=== PATIENT | female | born 1980 | race Caucasian/White ===

== ENCOUNTER 2021-01-02 13:15 | Emergency (ER) | payer MEDICARE, OTHER ==
[~2021-01-02] VITALS: Ht 162.6 cm; Wt 100.2 kg
[2021-01-02] MEDS ORDERED: Z.0.FLONASE16 GM (13:36)
[2021-01-02] MEDS ORDERED: ABILIFY30 MG (13:36)
[2021-01-02] MEDS ORDERED: DEPAKOTE ER500 MG PO (13:36)
[2021-01-02] MEDS ORDERED: NEXIUM40 MG PO (13:36)
[2021-01-02] MEDS ORDERED: SKELAXIN800 MG PO (13:58)
[2021-01-02] MEDS ORDERED: NAPROSYN500 MG PO (14:01)
[2021-01-02 14:10] VITALS: BP 158/74
== END 2021-01-02 14:09 | disposition home or self-care (01) ==
LOC: FSED 13:45
DX: M54.2 Cervicalgia (principal); M62.830 Muscle spasm of back; W22.01XA Walked into wall, initial encounter; Y93.02 Activity, running; Y92.59 Other trade areas as the place of occurrence of the external cause; F31.9 Bipolar disorder, unspecified; K21.9 Gastro-esophageal reflux disease without esophagitis
CPT/HCPCS: 81003; 81025; 99282

== ENCOUNTER 2021-09-12 15:28 | Emergency (ER) | payer MEDICARE ==
[~2021-09-12] VITALS: Ht 162.6 cm; Wt 90.7 kg
[~2021-09-12 15:28] MED LIST: ABILIFY30 MG; DEPAKOTE ER500 MG PO; NAPROSYN500 MG PO; NEXIUM40 MG PO; SKELAXIN800 MG PO; Z.0.FLONASE16 GM
[2021-09-12] MEDS ORDERED: SODIUM CHLORIDE 0.9% 1000ML 1,000 ML IV SCH (15:45)
[2021-09-12 16:03] LABS: BASOPHILS % 0.1 % (0.0-1.0); EOSINOPHILS % 0.4 % (0.0-6.0); HEMATOCRIT 45.4 % (34.2-44.1); HEMOGLOBIN 14.4 g/dL (12.0-16.0); LYMPHOCYTES # (AUTO) 1.6 (1.0-3.2); LYMPHOCYTES % 23.3 % (18.0-39.1); MEAN CORPUSCULAR HEMOGLOBIN 26.1 pg (28-32); MEAN CORPUSCULAR HGB CONC 31.7 g/dL (31-35); MEAN CORPUSCULAR VOLUME 82.2 fL (81-99); MONOCYTES # (AUTO) 0.5 (0.2-0.8); MONOCYTES % 7.7 % (4.4-11.3); NEUTROPHILS # (AUTO) 4.8 (2.1-6.9); NEUTROPHILS % 68.1 % (38.7-80.0); PLATELET COUNT 299 x10e3/uL (140-360); RED BLOOD COUNT 5.52 x10e6/uL (3.6-5.1)
[2021-09-12 16:11] LABS: CLARITY,URINE CLEAR (CLEAR); COLOR,URINE YELLOW (YELLOW); KETONES,URINE NEGATIVE (NEGATIVE); LEUKOCYTE ESTERASE ,URINE NEGATIVE (NEGATIVE); NITRITE,URINE NEGATIVE (NEGATIVE); PROTEIN,URINE DIPSTICK NEGATIVE (NEGATIVE); URINE UROBILINOGEN 0.2 mg/dL (0.2 - 1)
[2021-09-12] MEDS ORDERED: CASIRIVIMAB/IMDEVIMAB 10 ML in SODIUM CHLORIDE 0.9% 100 ML IV ONE (16:15)
[2021-09-12 16:19] LABS: ALBUMIN 4.6 g/dL (3.5-5.0); ALBUMIN/GLOBULIN RATIO 1.4 (0.8-2.0); ANION GAP 17.2 mmol/L (8-16); CALCIUM 9.4 mg/dL (8.4-10.2); CREATININE, SERUM 0.77 mg/dL (0.57-1.11); POTASSIUM 4.2 mmol/L (3.5-5.1)
[2021-09-12 16:23] LABS: BACTERIA,URINE RARE /HPF; EPITHELIAL CELLS,URINE FEW /LPF
== END 2021-09-12 18:25 | disposition home or self-care (01) ==
LOC: ER 15:35
DX: U07.1 COVID-19 (principal); R11.2 Nausea with vomiting, unspecified; R19.7 Diarrhea, unspecified; F31.9 Bipolar disorder, unspecified
CPT/HCPCS: 36415; 71045; 80053; 81001; 85025; 93005; 99284; J7050

== ENCOUNTER 2022-09-23 21:24 | Emergency (ER) | payer MEDICARE ==
[~2022-09-23] VITALS: Ht 162.6 cm; Wt 90.7 kg
[2022-09-23] MEDS ORDERED: ONDANSETRON HCL 4 MG ORAL DISINTEGRATING TAB PO ONE (22:30)
[2022-09-23] MEDS ORDERED: IBUPROFEN 400 MG TAB PO ONE (22:30)
[2022-09-23] MEDS ORDERED: TETANUS/DIPHTHERIA TOX ADULT 0.5 ML SYR IM ONE (23:00)
[2022-09-24] MEDS ORDERED: ONDANSETRON ODT4 MG PO (00:45)
[2022-09-24] MEDS ORDERED: NAPROSYN500 MG PO (00:45)
[2022-09-24] MEDS ORDERED: AUGMENTIN XR 11 EACH PO (00:45)
[2022-09-24 03:17] VITALS: BP 122/84
== END 2022-09-24 00:34 | disposition home or self-care (01) ==
LOC: ER 21:39
DX: S00.83XA Contusion of other part of head, initial encounter (principal); Y04.8XXA Assault by other bodily force, initial encounter; Y99.0 Civilian activity done for income or pay
CPT/HCPCS: 70450; 70486; 72125; 90471; 90714; 99283; Q0162

== ENCOUNTER 2025-07-15 18:24 | Emergency (ER) | payer MEDICARE ==
[~2025-07-15] VITALS: Ht 160 cm; Wt 85.3 kg
[~2025-07-15 18:24] MED LIST changes: +AUGMENTIN XR 11 EACH PO; +IBUPROFEN600 MG PO; +ONDANSETRON ODT4 MG PO
[2025-07-15 19:06] VITALS: PULSE 64; RESP 16; TEMP 98
[2025-07-15 19:28] LABS: BASOPHILS % 0.2 % (0.0-1.0); EOSINOPHILS % 0.4 % (0.0-6.0); LYMPHOCYTES % 16.8 % (18.0-39.1); MONOCYTES % 5.3 % (4.4-11.3); NEUTROPHILS % 76.9 % (38.7-80.0); RED CELL DISTRIBUTION WIDTH 16.2 % (11.7-14.4)
[2025-07-15 19:43] LABS: EST GLOMERULAR FILTRATION RATE 110.0 ML/MIN (>=60)
[2025-07-15] MEDS: DIPHENHYDRAMINE HCL INJ 50 MG/ML VIAL IV ONE (20:46)
[2025-07-15] MEDS: METOCLOPRAMIDE HCL 10 MG/2ML VIAL IV ONE (20:46)
[2025-07-15] MEDS: ONDANSETRON HCL INJ 2MG/ML 2ML 2 MG/ML VIAL IV STA (20:46)
[2025-07-15] MEDS: KETOROLAC TROMETHAMINE 30 MG/ML VIAL IV STA (20:48)
[2025-07-15] MEDS: SODIUM CHLORIDE 0.9% 1000ML 1,000 ML IV ONE (20:49)
[2025-07-15 22:25] LABS: LEUKOCYTE ESTERASE ,URINE NEGATIVE (NEGATIVE); PROTEIN,URINE DIPSTICK NEGATIVE (NEGATIVE); URINE UROBILINOGEN 0.2 mg/dL (0.2 - 1)
[2025-07-15 22:48] LABS: EPITHELIAL CELLS,URINE FEW /LPF; WBC,URINE (MAN) 0-5 /HPF (0-5)
[2025-07-15] MEDS ORDERED: ONDANSETRON ODT4 MG SL (22:58)
[2025-07-16 01:41] VITALS: BP 144/84; PULSE 58; RESP 18; TEMP 98.1; O2SAT 99
== END 2025-07-15 23:30 | disposition home or self-care (01) ==
LOC: ER 19:20
DX: R11.2 Nausea with vomiting, unspecified (principal); G43.909 Migraine, unspecified, not intractable, without status migrainosus; M54.6 Pain in thoracic spine; K21.9 Gastro-esophageal reflux disease without esophagitis; F41.9 Anxiety disorder, unspecified; F31.9 Bipolar disorder, unspecified
CPT/HCPCS: 36415; 70450; 71045; 80053; 81001; 84484; 85025; 93005; 99284; J1200; J1885; J2405; J2765; J7030

== ENCOUNTER 2025-08-29 20:53 | Emergency (ER) | payer MEDICARE ==
[~2025-08-29] VITALS: Ht 160 cm; Wt 85.3 kg
[~2025-08-29 20:53] MED LIST changes: +ONDANSETRON ODT4 MG SL
[2025-08-29] MEDS: SODIUM CHLORIDE 0.9% 1000ML 1,000 ML IV STA (21:56)
[2025-08-29] MEDS: ONDANSETRON HCL INJ 2MG/ML 2ML 2 MG/ML VIAL IV STA (21:56)
[2025-08-29 22:07] LABS: BASOPHILS % 0.2 % (0.0-1.0); EOSINOPHILS % 0.2 % (0.0-6.0); LYMPHOCYTES % 13.5 % (18.0-39.1); MONOCYTES % 5.5 % (4.4-11.3); NEUTROPHILS % 80.3 % (38.7-80.0); RED CELL DISTRIBUTION WIDTH 19.6 % (11.7-14.4)
[2025-08-29 22:08] LABS: LEUKOCYTE ESTERASE ,URINE TRACE (NEGATIVE); PREGNANCY TEST, URINE NEGATIVE (NEGATIVE); PROTEIN,URINE DIPSTICK NEGATIVE (NEGATIVE); URINE UROBILINOGEN 0.2 mg/dL (0.2 - 1)
[2025-08-29 22:20] LABS: EST GLOMERULAR FILTRATION RATE 112.0 ML/MIN (>=60)
[2025-08-29 22:24] LABS: CORONAVIRUS COVID-19 AG NEGATIVE (NEGATIVE)
[2025-08-29 22:27] LABS: EPITHELIAL CELLS,URINE MANY /LPF
[2025-08-29 23:00] VITALS: TEMP 97.4
[2025-08-29] MEDS ORDERED: IOPAMIDOL 370 MG/ML 100 ML INFUS..BTL INJ ONE (23:03)
[2025-08-30] MEDS: ONDANSETRON HCL INJ 2MG/ML 2ML 2 MG/ML VIAL IV STA (00:42)
[2025-08-30] MEDS: SODIUM CHLORIDE 0.9% 1000ML 1,000 ML IV STA (00:42)
[2025-08-30 02:00] VITALS: PULSE 79; RESP 16; O2SAT 100
[2025-08-30] MEDS ORDERED: ONDANSETRON ODT4 MG PO (02:06)
== END 2025-08-30 02:20 | disposition home or self-care (01) ==
LOC: ER 20:59
DX: R11.2 Nausea with vomiting, unspecified (principal); M62.830 Muscle spasm of back; K21.9 Gastro-esophageal reflux disease without esophagitis; R53.1 Weakness; R53.81 Other malaise; F41.9 Anxiety disorder, unspecified; F31.9 Bipolar disorder, unspecified; Z11.52 Encounter for screening for COVID-19
CPT/HCPCS: 36415; 74177; 80053; 81001; 81025; 83690; 85025; 87426; 99284; J2405 ×2; J7030 ×2; Q9967